=== PATIENT | male | born 1965 | race Two or more races ===

== ENCOUNTER 2020-05-30 20:34 | Inpatient (IN) | payer OTHER ==
[~2020-05-30] VITALS: Ht 177.8 cm; Wt 83.9 kg
[2020-05-30] MEDS ORDERED: ONDANSETRON HCL 4MG/2ML INJ IV STA (21:22)
[2020-05-30] MEDS ORDERED: SODIUM CHLORIDE 0.9% 1,000 ML IV ONE (21:22)
[2020-05-30 22:14] LABS: HEMOGLOBIN. 16.9 g/dL (14.0-18.0); MEAN CORPUSCULAR HEMOGLOBIN 31.3 pg (28.0-32.0); MEAN CORPUSCULAR VOLUME 86.8 fL (80.0-94.0); MEAN PLATELET VOLUME 7.5 fl (7.4-10.4); PLATELET 245 x1000/uL (130-400); RED BLOOD CELL COUNT 5.42 mill/uL (4.7-6.1); RED CELL DISTRIBUTION WIDTH 13.6 % (11.6-14.6)
[2020-05-30 22:20] LABS: CHLORIDE 99 mEq/L (98-107)
[2020-05-30 22:23] LABS: ETHANOL BLOOD < 10 mg/dL
[2020-05-30 22:24] LABS: PROTHROMBIN TIME 10.8 sec (9.6-11.0)
[2020-05-30 22:47] LABS: PLATELET ESTIMATE NORMAL
[2020-05-30] MEDS ORDERED: METOCLOPRAMIDE HCL 10MG/2ML VIAL IV ONE (23:45)
[2020-05-31] MEDS: SODIUM CHLORIDE 0.9% 1,000 ML IV NR ×4 (00:09→02:47)
[2020-05-31 01:08] LABS: CLARITY URINE CLEAR (CLEAR); COLOR URINE YELLOW (YELLOW); KETONES URINE 2+ (NEGATIVE); LEUKOCYTE ESTERASE URINE NEGATIVE (NEGATIVE); NITRITE URINE NEGATIVE (NEGATIVE); OCCULT BLOOD URINE NEGATIVE (NEGATIVE); PROTEIN URINE 1+ (NEGATIVE); SPECIFIC GRAVITY URINE 1.019 (1.005-1.030)
[2020-05-31 01:18] LABS: *AMPHETAMINES SCREEN URINE NEGATIVE (NEGATIVE); *BARBITURATES SCREEN URINE NEGATIVE (NEGATIVE); *BENZODIAZEPINES SCREEN URINE NEGATIVE (NEGATIVE); *COCAINE SCREEN URINE NEGATIVE (NEGATIVE); METHADONE URINE SCREEN NEGATIVE (NEGATIVE); OPIATES URINE SCREEN PRESUMTIVE POSITIVE (NEGATIVE)
[2020-05-31 01:19] LABS: CANNABINOID URINE SCREEN NEGATIVE (NEGATIVE); PHENCYCLIDINE URINE SCREEN NEGATIVE (NEGATIVE)
[2020-05-31] MEDS ORDERED: ONDANSETRON HCL 4MG/2ML INJ IV ONE (05:30)
[2020-05-31] MEDS ORDERED: IOHEXOL-300 100 ML BOTTLE ONE (06:24)
[2020-05-31] MEDS: ONDANSETRON HCL 4MG/2ML INJ IV PRN ×2 (10:27→18:08)
[2020-05-31] MEDS ORDERED: ACETAMINOPHEN 325MG TABLET PO PRN (12:45)
[2020-05-31] MEDS ORDERED: DEXTROSE 50% WATER 50ML SYRINGE IV PRN (12:45)
[2020-05-31] MEDS: BLOOD SUGAR DIAGNOSTIC STRIP TEST SCH ×4 (13:00→20:48)
[2020-05-31] MEDS: SODIUM CHLORIDE 0.9% 1,000 ML IV SCH ×2 (13:00→22:41)
[2020-05-31] MEDS: INSULIN LISPRO 100 UNITS/ML SUBCUT SCH ×3 (13:20→20:58)
[2020-05-31] MEDS ORDERED: LEVOFLOXACIN 500MG PREMIX 100 ML IV SCH (14:00)
[2020-05-31] MEDS ORDERED: KETOROLAC 15MG/ML VIAL IV PRN (16:00)
[2020-05-31 17:20] VITALS: BP 147/85
[2020-05-31 17:22] VITALS: BP 147/85
[2020-05-31] MEDS ORDERED: ACYC200C PO (17:35)
[2020-05-31 20:00] VITALS: BP 147/84
[2020-05-31] MEDS: HEPARIN 5000 UNITS/ML VIAL SUBCUT SCH (20:58)
[2020-05-31 22:29] LABS: HEPATITIS B SURFACE ANTIGEN NEGATIVE
[2020-05-31] MEDS ORDERED: ONDANSETRON HCL 4MG/2ML INJ IV NR (22:30)
[2020-05-31 22:59] LABS: HEPATITIS A AB IGM NEGATIVE (NEGATIVE)
[2020-06-01] VITALS: BP 122/85
[2020-06-01 04:00] VITALS: BP 139/85
[2020-06-01] MEDS: BLOOD SUGAR DIAGNOSTIC STRIP TEST SCH ×2 (05:35→12:45)
[2020-06-01] MEDS: ONDANSETRON HCL 4MG/2ML INJ IV PRN (05:50)
[2020-06-01] MEDS: INSULIN LISPRO 100 UNITS/ML SUBCUT SCH ×2 (06:28→13:10)
[2020-06-01 06:32] LABS: BASOPHILS % 0.4 % (0.0-2.0); EOSINOPHILS % 0.1 % (0.0-5.0); HEMATOCRIT. 43.7 % (42.0-52.0); HEMOGLOBIN. 15.5 g/dL (14.0-18.0); LYMPHOCYTES % 17.1 % (20.0-50.0); MEAN CORPUSCULAR HEMOGLOBIN 31.5 pg (28.0-32.0); MEAN CORPUSCULAR VOLUME 88.7 fL (80.0-94.0); MEAN PLATELET VOLUME 7.8 fl (7.4-10.4); MONOCYTES % 6.9 % (2.0-8.0); NEUTROPHILS % 75.5 % (40.0-76.0); PLATELET 231 x1000/uL (130-400); RED BLOOD CELL COUNT 4.93 mill/uL (4.7-6.1); RED CELL DISTRIBUTION WIDTH 13.7 % (11.6-14.6)
[2020-06-01 06:48] LABS: CHLORIDE 108 mEq/L (98-107)
[2020-06-01 07:14] LABS: GAMMA GLUTAMYL TRANSPEPTIDASE 107 IU/L (11-50)
[2020-06-01 08:00] VITALS: BP 130/72
[2020-06-01] MEDS ORDERED: POTASSIUM CHLORIDE 20MEQ TABLET SR PO NR (08:00)
[2020-06-01] MEDS: HEPARIN 5000 UNITS/ML VIAL SUBCUT SCH (09:40)
[2020-06-01 12:00] VITALS: BP 151/91
[2020-06-01] MEDS ORDERED: POTASSIUM CHLORIDE 20MEQ TABLET SR PO SCH (12:15)
[2020-06-01] MEDS ORDERED: LEVOFLOXACIN 500MG PREMIX 100 ML IV SCH (13:00)
[2020-06-01] MEDS ORDERED: KETOROLAC 30MG/ML VIAL IV PRN (14:30)
[2020-06-01] MEDS: SODIUM CHLORIDE 0.9% 1,000 ML IV SCH (16:36)
[2020-06-01 18:25] VITALS: BP 148/85
[2020-06-01] MEDS ORDERED: TRAMADOL 50MG TABLET PO PRN (18:30)
[2020-06-01 20:06] VITALS: BP 146/92
== END 2020-06-01 20:55 | disposition short-term general hospital (02) | DRG 871 ==
LOC: ER 20:34 → 7WST 05-31 02:37 → EDBEDREQDT 05-31 02:56 → EDBEDREQTM 05-31 02:56 → EDBEDREQ 05-31 02:56 → CANRESERV 05-31 10:59 → ENRESERV 05-31 10:59
PROVIDERS: ADMIT Internal Medicine; ATTEND Internal Medicine
DX: A41.89 Other specified sepsis (principal); U07.1 COVID-19; J12.89 Other viral pneumonia; J96.00 Acute respiratory failure, unspecified whether with hypoxia or hypercapnia; E87.1 Hypo-osmolality and hyponatremia; J98.11 Atelectasis; A08.4 Viral intestinal infection, unspecified; E87.6 Hypokalemia; M47.816 Spondylosis without myelopathy or radiculopathy, lumbar region; R74.0 Nonspecific elevation of levels of transaminase and lactic acid dehydrogenase [LDH]; M25.78 Osteophyte, vertebrae; R73.9 Hyperglycemia, unspecified; I10 Essential (primary) hypertension; K76.0 Fatty (change of) liver, not elsewhere classified; Z86.73 Personal history of transient ischemic attack (TIA), and cerebral infarction without residual deficits; Z82.49 Family history of ischemic heart disease and other diseases of the circulatory system; Z79.899 Other long term (current) drug therapy
CPT/HCPCS: 36415; 71045; 74177; 80053; 80305; 80320; 81003; 82248; 82270; 82962; 82977; 83036; 83605; 83735; 83880; 84145; 84484; 85025; 86705; 86709; 86803; 87015; 87045; 87177; 87209; 87340; 87427; 87449; 87493; 89055; 93005; 96374; 99285; J1644; J1885; J1956; J2405; J2765; J7030; Q9967; G0480; U0003-CS